=== PATIENT | male | born 1955 | race American Indian/Alaskan Native ===

== ENCOUNTER 2020-12-11 06:39 | Day surgery (SDC) | payer MEDICARE, MEDICAID ==
[~2020-12-11 06:39] MED LIST: Dextrose 5%-0.45% NaCl 1,000 ML IV SCH; Midazolam 1 MG/ML 2 ML SDV ONE; Sodium Chloride 0.9% 10 ML Syringe FLUSH PRN; fentaNYL 100 MCG/2 ML SDV ONE
[2020-12-11] MEDS ORDERED: Midazolam 1 MG/ML 2 ML SDV IV ONE ×3 (06:40→08:19)
[2020-12-11] MEDS ORDERED: fentaNYL 100 MCG/2 ML SDV IV ONE ×3 (06:40→08:18)
--- NOTE | 2020-12-11 12:13 | OR ---
DATE: 12/11/2020 PROCEDURES: Esophagogastroduodenoscopy, narrow-band imaging, and multiple pinch biopsies. INSTRUMENT USED: GIF-HQ190 Olympus video panendoscope. PREMEDICATIONS: No oral or topical anesthesia used. Fentanyl 100 mcg intravenous, Versed 2 mg intravenous, nasal O2 cannula. The procedure was done under pulse oximetry, BP recording, and lobbyist. INDICATION: The patient with iron-deficiency anemia. Esophagogastroduodenoscopy is performed for detection of any active erosive lesions, Osorio esophagus and/or malignancy also under consideration, H pylori status to be determined, small bowel biopsies to be obtained for celiac disease if indicated, endoscopic hemostasis therapy if needed. PROCEDURE IN DETAIL: The scope was passed with ease. Adequate visualization of the esophagus was made from proximal to distal areas. No upper esophageal lesions identified. No distal esophageal stricture. No uphill or downhill esophageal varices. No Rosaura-An tear. No evidence of erosive esophagitis by Laporte criteria. No esophageal polyp or tumor mass identified. Z-line was seen at around 39 cm distal to the oral verge. No proximal gastric varices noted. Gastric fundus examination by retroflexion showed no polypoid lesions. No gastric ulcer, malignant mass, or vascular ectasia identified. Duodenal bulb showed no ulcer. Visualized second part of the duodenum is unremarkable. Multiple pinch biopsies were taken from the second part of the duodenum, 4 of them from different areas. Tissues were also obtained from the duodenal bulb at 9 and 12 o'clock positions and sent for any histopathologic evidence of celiac disease. Multiple pinch biopsies were taken from the gastric antrum and proximal body and sent for PyloriTek test for H pylori and histopathology. Some prominent gastric body folds were noted, NBI views were obtained, photographs were taken, multiple pinch biopsies were obtained and sent for histopathology. No bleeding was noted from any of the visualized areas at the completion of examination. Photographs were taken of the duodenal bulb, gastric antrum, fundus, and distal esophagus. IMPRESSION: Normal study. The patient tolerated the procedure well. [facility] /[id number]
[2020-12-11 12:32] VITALS: BP 127/60; PULSE 45
--- NOTE | 2020-12-11 13:46 | LETTER ---
12/11/2020 RE: ABEL ZUNIGA : 1955 Loyd Barba MD [facility] [address] [place] [address] Barba: Mr. Abel Zuniga had esophagogastroduodenoscopy done this morning, and he tolerated the procedure well. I, herewith, send a copy of the endoscopy note and photographs for your review. Thank you. Sincerely, [facility] /[id number]
== END 2020-12-11 10:41 | disposition home or self-care (01) ==
LOC: DL.ENDO 06:39
PROVIDERS: ATTEND Internal Medicine Gastroenterology
DX: K29.50 Unspecified chronic gastritis without bleeding (principal); K31.89 Other diseases of stomach and duodenum; D50.9 Iron deficiency anemia, unspecified; F17.210 Nicotine dependence, cigarettes, uncomplicated; I25.10 Atherosclerotic heart disease of native coronary artery without angina pectoris; I48.91 Unspecified atrial fibrillation; E11.9 Type 2 diabetes mellitus without complications; E66.09 Other obesity due to excess calories; Z68.28 Body mass index [BMI] 28.0-28.9, adult; Z88.0 Allergy status to penicillin; Z87.11 Personal history of peptic ulcer disease
CPT/HCPCS: 87077; 88305; 88342; J2250; J3010; J7042

== ENCOUNTER 2021-01-08 07:06 | Day surgery (SDC) | payer MEDICARE, MEDICAID ==
[2021-01-08] MEDS ORDERED: Midazolam 1 MG/ML 2 ML SDV IV ONE ×6 (07:07→07:56)
[2021-01-08] MEDS ORDERED: fentaNYL 100 MCG/2 ML SDV IV ONE ×3 (07:07→07:41)
[2021-01-08 10:10] VITALS: BP 122/65; PULSE 72
--- NOTE | 2021-01-08 12:29 | OR ---
DATE: 01/08/2021 PROCEDURES: Total colonoscopy, narrow-band imaging, and multiple cold snare polypectomies. INSTRUMENT USED: PCF-H190DL Olympus video colonoscope. PREMEDICATIONS: Fentanyl 100 mcg intravenous, Versed 3.5 mg intravenous, nasal O2 cannula. The procedure was done under pulse oximetry, BP recording, and client technologies specialist. INDICATION: The patient with iron-deficiency anemia. Colonoscopic examination is done for detection of any polypoid lesions and removal, endoscopic hemostasis therapy if needed. DESCRIPTION OF PROCEDURE: Initial rectal exam was unremarkable. Rigid anoscopy was normal. The colonoscope was passed with ease. Diminutive benign-appearing polyps were noted in the distal transverse colon, 2 in number, also noted in the proximal transverse colon and distal descending colon, photographs were taken, NBI views were obtained, multiple cold snare polypectomies were performed, the tissues were retrieved and sent for histopathology. The scope was passed with ease up to the ileocecal area. Photographs were taken of the normal appearing cecum identified by double-bulged ileocecal folds. No bleeding was noted from any of the visualized areas at the commencement of the examination. No stricture. No vascular ectasia. No large isolated ulcerations seen. No evidence of diffuse inflammatory bowel disease in the form of friability, contact bleeding, or ulcerations. Probing the proximal sides of folds and flexures using adequate distention and clearing up the stool material, withdrawal of the scope was made, cecum to rectum time over 6 minutes. The bowel preparation was found to be adequate, [place] scale 2 in all the regions, total score 6. No bleeding was noted from any of the visualized areas at the completion of examination. IMPRESSION: Multiple diminutive colonic polyps. The patient tolerated the procedure well. [facility] /[id number]
--- NOTE | 2021-01-08 13:27 | LETTER ---
01/08/2021 RE: ABEL ZUNIGA : 1955 Loyd Barba MD [address] [place] [address] Barba: Mr. Abel Zuniga had colonoscopic examination done this morning and he tolerated the procedure well. I, herewith, send a copy of the endoscopy note and photographs for your review. Thank you. Sincerely, [facility] /[id number]
== END 2021-01-08 09:55 | disposition home or self-care (01) ==
LOC: DL.ENDO 07:06
PROVIDERS: ATTEND Internal Medicine Gastroenterology
DX: D12.3 Benign neoplasm of transverse colon (principal); D12.4 Benign neoplasm of descending colon; D50.9 Iron deficiency anemia, unspecified; Z88.0 Allergy status to penicillin
CPT/HCPCS: 88305; J2250; J3010; J7042

== ENCOUNTER 2021-10-22 17:40 | Emergency (ER) | payer MEDICARE, MEDICAID ==
[2021-10-22] MEDS: Albuterol/Ipratropium 3.0-0.5 MG/3 ML Neb Soln NEB ONE (17:34)
[~2021-10-22 17:40] MED LIST changes: -Dextrose 5%-0.45% NaCl 1,000 ML IV SCH; -Midazolam 1 MG/ML 2 ML SDV ONE; -Sodium Chloride 0.9% 10 ML Syringe FLUSH PRN; -fentaNYL 100 MCG/2 ML SDV ONE; +methylPREDNISolone Sodium Succinate 125 MG/2 ML SDV IVPUSH ONE
[2021-10-22] MEDS: methylPREDNISolone Sodium Succinate 125 MG/2 ML SDV IM ONE (17:52)
[2021-10-22 18:07] LABS: ANION GAP 12.1 mEq/L (7-13); CHLORIDE,CL 102 mmol/L (98-107); ESTIMATED GFR > 60; SODIUM,NA 137 mmol/L (136-145)
[2021-10-22] MEDS: Albuterol 0.083% 2.5 MG/3 ML Neb Soln NEB ONE (18:08)
[2021-10-22 19:19] VITALS: BP 169/72; PULSE 76
== END 2021-10-22 18:55 | disposition home or self-care (01) ==
LOC: DL.ED 17:40
DX: J45.21 Mild intermittent asthma with (acute) exacerbation (principal); K21.9 Gastro-esophageal reflux disease without esophagitis; E11.9 Type 2 diabetes mellitus without complications; I25.2 Old myocardial infarction; E66.9 Obesity, unspecified; Z68.30 Body mass index [BMI] 30.0-30.9, adult; Z86.73 Personal history of transient ischemic attack (TIA), and cerebral infarction without residual deficits; Z88.0 Allergy status to penicillin; Z79.82 Long term (current) use of aspirin; Z79.01 Long term (current) use of anticoagulants; Z79.899 Other long term (current) drug therapy
CPT/HCPCS: 36415; 71045; 80053; 85025; 94640; 96372; 99283; 99285; J2930; J7613-GY; J7620-GY

== ENCOUNTER 2023-10-04 13:00 | Emergency (ER) | payer MEDICARE, OTHER ==
[2023-10-04 13:22] VITALS: BP 142/72; PULSE 116
[2023-10-04 13:34] LABS: BASOPHILS PERCENT AUTO 0.2 % (0.0-1.0); EOSINOPHILS PERCENT AUTO 2.6 % (1.0-3.0); HEMOGLOBIN 8.4 g/dL (14.0-18.0); LYMPHOCYTES PERCENT AUTO 16.7 % (20.5-50.1); MEAN CORPUSCULAR HEMOGLOBIN 28.1 pg (27.0-34.0); MEAN CORPUSCULAR HGB CONC 31.1 g/dL (33.0-35.0); MEAN CORPUSCULAR VOLUME 90.3 fL (80-100); MONOCYTES PERCENT AUTO 14.1 % (2-8); NEUTROPHILS PERCENT AUTO 66.4 % (42.2-75.2); PLATELET COUNT,PLT 219 10^3/uL (150-450); RED BLOOD CELL COUNT 2.99 10^6/uL (4.6-6.2); WHITE BLOOD CELL COUNT,WBC 9.3 10^3/uL (5.0-10.0)
[2023-10-04] MEDS: HYDROmorphone 0.5 MG/0.5 ML Syringe IVPUSH ONE (13:34)
[2023-10-04] MEDS: Sodium Chloride 0.9% 10 ML Syringe FLUSH PRN (13:35)
[2023-10-04] MEDS: Ketorolac 30 MG/ML SDV IVPUSH ONE (13:36)
[2023-10-04 13:54] LABS: A/G RATIO 0.9; ALBUMIN 3.4 g/dL (3.4-5.0); ANION GAP 13.7 mEq/L (7-13); BILIRUBIN TOTAL 1.3 mg/dL (0.2-1.0); CALCIUM 8.5 mg/dL (8.5-10.1); EST CRCL DRUG DOSING (CG) 68.4 mL/min; POTASSIUM,K 3.7 mmol/L (3.5-5.1); PROTEIN TOTAL,TP 7.4 g/dL (6.4-8.2)
[2023-10-04] MEDS: Iopamidol 612 MG/ML 100 ML Bottle IVPUSH ONE (14:08)
== END 2023-10-04 16:07 | disposition home or self-care (01) ==
LOC: DL.ED 13:00
DX: K52.9 Noninfective gastroenteritis and colitis, unspecified (principal); F17.210 Nicotine dependence, cigarettes, uncomplicated; I48.91 Unspecified atrial fibrillation; I25.10 Atherosclerotic heart disease of native coronary artery without angina pectoris; E78.00 Pure hypercholesterolemia, unspecified; I25.2 Old myocardial infarction; J44.9 Chronic obstructive pulmonary disease, unspecified; E11.9 Type 2 diabetes mellitus without complications; E66.9 Obesity, unspecified; Z86.16 Personal history of COVID-19; Z79.01 Long term (current) use of anticoagulants; Z79.02 Long term (current) use of antithrombotics/antiplatelets; Z79.899 Other long term (current) drug therapy; Z95.5 Presence of coronary angioplasty implant and graft; Z88.0 Allergy status to penicillin
CPT/HCPCS: 36415; 74177; 80053; 85025; 96374; 99284; 99284-25; J1170; J3490; Q9967

== ENCOUNTER 2023-11-05 09:28 | Emergency (ER) | payer MEDICARE, OTHER ==
[2023-11-05] MEDS ORDERED: Sodium Chloride 0.9% 10 ML Syringe FLUSH PRN (09:32)
[2023-11-05] MEDS ORDERED: 50% Dextrose in Water 50 ML Syringe ONE (09:32)
[2023-11-05] MEDS ORDERED: Naloxone 2 MG/2 ML Syringe ONE (09:43)
[2023-11-05 09:50] LABS: HEMATOCRIT 26.5 % (40.0-54.0); MEAN CORPUSCULAR HEMOGLOBIN 24.6 pg (27.0-34.0); MEAN CORPUSCULAR VOLUME 94.6 fL (80-100); PLATELET COUNT,PLT 227 10^3/uL (150-450); WHITE BLOOD CELL COUNT,WBC 12.9 10^3/uL (5.0-10.0)
[2023-11-05 09:56] LABS: HEMOGLOBIN 6.9 g/dL (14.0-18.0)
[2023-11-05 09:57] LABS: BASOPHILS PERCENT AUTO 0.1 % (0.0-1.0); EOSINOPHILS PERCENT AUTO 0.1 % (1.0-3.0); LYMPHOCYTES PERCENT AUTO 8.4 % (20.5-50.1); MONOCYTES PERCENT AUTO 15.6 % (2-8); NEUTROPHILS PERCENT AUTO 75.8 % (42.2-75.2)
[2023-11-05] MEDS: Norepinephrine Bit/D5W Premix 250 ML ONE (09:59)
[2023-11-05] MEDS: Rocuronium 100 MG/10 ML MDV IVPUSH ONE (10:00)
[2023-11-05] MEDS: Etomidate 2 MG/ML 10 ML SDV IVPUSH ONE (10:00)
[2023-11-05] MEDS ORDERED: Furosemide 40 MG/4 ML VIAL IVPUSH ONE (10:09)
[2023-11-05 10:10] LABS: A/G RATIO 0.83; ALANINE AMINOTRANSFERASE,ALT 451 U/L (16-63); ALKALINE PHOSPHATASE 70 U/L (46-116); ANION GAP 28.3 mEq/L (7-13); ASPARTATE AMNIOTRANSFERASE,AST 862 U/L (15-37); BILIRUBIN TOTAL 3.3 mg/dL (0.2-1.0); BLOOD UREA NITROGEN,BUN 31 mg/dL (7-18); BUN/CREATININE RATIO 12.6 (No establ ref range); C-REACTIVE PROTEIN 5.62 ng/dL (<=0.50); CALCIUM 8.8 mg/dL (8.5-10.1); CARBON DIOXIDE,CO2 13 mmol/L (21-32); CHLORIDE,CL 98 mmol/L (98-107); CREATININE 2.47 mg/dL (0.70-1.30); ESTIMATED GFR 28 mL/min (>=60); GLUCOSE RANDOM 245 mg/dL (70-99); MAGNESIUM 2.8 mg/dL (1.8-2.4); POTASSIUM,K 4.3 mmol/L (3.5-5.1); PROTEIN TOTAL,TP 6.6 g/dL (6.4-8.2); SODIUM,NA 135 mmol/L (136-145)
[2023-11-05 10:11] LABS: ETHANOL BLOOD MEDICAL < 3 mg/dL (0); INR 4.4 (0.9-1.2); PROTHROMBIN TIME 41.5 SEC (9.0-12.0); PTT,PARTIAL THROMBOPLSTIN TIME 36.6 SEC (22.0-34.0)
[2023-11-05] MEDS ORDERED: Norepinephrine Bit/D5W Premix 250 ML IV SCH (10:15)
[2023-11-05] MEDS ORDERED: Vancomycin 2 GM in Sodium Chloride 0.9% 500 ML IV ONE ×2 (10:25→10:49)
[2023-11-05] MEDS ORDERED: Sodium Chloride 0.9% 100 ML ONE (10:32)
[2023-11-05 10:33] LABS: LACTIC ACID 22.1 mmol/L (0.4-2.0)
[2023-11-05] MEDS: Vancomycin 1 GM SDV ONE (10:45)
[2023-11-05 10:50] LABS: O2 DELIVERY DEVICE RESUSCITATION BAG
[2023-11-05 11:01] LABS: BASE EXCESS VENOUS -21.7 mmol/l ((-2)-(+3)); BICARBONATE,VENOUS 10 mmol/l (19-25); O2 SATURATION VENOUS 60.8 % (60-80); PO2 VENOUS 62 mmHg (35-42)
[2023-11-05 11:06] LABS: PCO2 VENOUS 61 mmHg (41-51); PH,VENOUS 6.86 (7.31-7.41)
[2023-11-05 11:11] LABS: APPEARANCE,URINE CLEAR (CLEAR); BILIRUBIN,URINE NEGATIVE (NEGATIVE); COLOR,URINE YELLOW (YELLOW); GLUCOSE,URINE NEGATIVE (NEGATIVE); KETONES,URINE TRACE (NEGATIVE); LEUKOCYTE ESTERASE,URINE NEGATIVE (NEGATIVE); NITRITE,URINE NEGATIVE (NEGATIVE); OCCULT BLOOD,URINE LARGE (NEGATIVE); PH,URINE 5.5 (5.0-9.0); PROTEIN,URINE 100 (NEGATIVE)
[2023-11-05 11:35] LABS: AMPHETAMINES,URINE NEGATIVE (NEGATIVE); BARBITURATES,URINE NEGATIVE (NEGATIVE); BENZODIAZEPINE,URINE NEGATIVE (NEGATIVE); MDMA (ECSTASY), URINE NEGATIVE (NEGATIVE); METHADONE,URINE NEGATIVE (NEGATIVE); METHAMPHETAMINES,URINE NEGATIVE (NEGATIVE); OPIATES,URINE NEGATIVE (NEGATIVE); OXYCODONE,URINE NEGATIVE (NEGATIVE); PHENCYCLIDINE,URINE NEGATIVE (NEGATIVE); TCA,URINE NEGATIVE (NEGATIVE)
[2023-11-05 11:36] LABS: BACTERIA,URINE FEW /HPF (0-FEW/HPF); EPITHELIAL CELLS,URINE OCCASIONAL /HPF (NOT SEEN); MUCUS,URINE RARE /LPF (NOT SEEN); WBC,URINE 0-5 /HPF (0-5/HPF)
[2023-11-05 11:45] LABS: BAND PERCENT MAN 2 %; LYMPHOCYTES PERCENT MAN 5 % (20-50); MONOCYTES PERCENT MAN 16 % (2-8); SEG NEUTROPHILS PERCENT MAN 77 % (42-75)
[2023-11-05 12:25] VITALS: BP 101/54; PULSE 120
[2023-11-05] MEDS: Furosemide 100 MG/10 ML SDV ONE (12:43)
[2023-11-05] MEDS: Naloxone 2 MG/2 ML Syringe IVPUSH ONE (12:49)
[2023-11-05] MEDS: Sodium Bicarbonate 150 MEQ in Dextrose 5% in Water 1,000 ML IV ONE (12:51)
[2023-11-05] MEDS: Piperacillin/Tazobactam 4.5 GM Vial ONE (12:55)
== END 2023-11-05 13:30 | disposition expired ==
LOC: DL.ED 09:28
DX: J81.0 Acute pulmonary edema (principal); I50.9 Heart failure, unspecified; I25.10 Atherosclerotic heart disease of native coronary artery without angina pectoris; I48.91 Unspecified atrial fibrillation; E78.00 Pure hypercholesterolemia, unspecified; I25.2 Old myocardial infarction; E11.9 Type 2 diabetes mellitus without complications; K21.9 Gastro-esophageal reflux disease without esophagitis; E05.90 Thyrotoxicosis, unspecified without thyrotoxic crisis or storm; J44.9 Chronic obstructive pulmonary disease, unspecified; Z86.73 Personal history of transient ischemic attack (TIA), and cerebral infarction without residual deficits; Z86.16 Personal history of COVID-19; Z95.1 Presence of aortocoronary bypass graft; Z79.01 Long term (current) use of anticoagulants; Z79.899 Other long term (current) drug therapy; Z79.51 Long term (current) use of inhaled steroids
CPT/HCPCS: 31500; 36415; 36430; 43752; 51702; 70450; 71045; 80053; 80305; 80307; 81001; 82803; 82947; 83605; 83735; 83880; 84484; 85025; 85379; 85610; 85730; 86140; 86850; 86900; 86901; 86920; 86922; 93010; 96374; 99285; J1940; J2310; J3370; J3490; P9016